=== PATIENT | female | born 1965 | race Caucasian/White ===

== ENCOUNTER 2023-06-15 18:50 | Emergency (ER) | payer BC, OTHER ==
[2023-06-15 19:12] VITALS: TEMP 97.6
[2023-06-15 20:06] LABS: Basophils # (A) 0.1 k/uL (0-0.2); Basophils % (A) 0 %; Eosinophils # (A) 0.2 k/uL (0-0.7); Eosinophils % (A) 1 %; HCT 26.9 % (34.0-46.0); HGB 9.2 gm/dL (11.4-16.0); Lymphocytes # (A) 1.1 k/uL (1.0-4.8); Lymphocytes % (A) 5 %; MCH 31.3 pg (25.0-35.0); MCHC 34.1 g/dL (31.0-37.0); MCV 91.8 fL (80.0-100.0); Mean Platelet Volume 10.4; Monocytes # (A) 1.1 k/uL (0-1.0); Monocytes % (A) 5 %; Neutrophils % (A) 86 %; Platelet Count 272 k/uL (150-450); RBC 2.92 m/uL (3.80-5.40); RDW 15.7 % (11.5-15.5); WBC 22.2 k/uL (3.8-10.6)
--- NOTE | 2023-06-15 20:10 | ED ---
General Adult HPI - General Source: patient, family Mode of arrival: ambulatory Limitations: no limitations <Alfonzo Lieberman - Last Filed: 06/15/23 20:10> <Liza Echavarria - Last Filed: 06/16/23 01:15> - General Chief complaint: Weakness Stated complaint: abnormal labs Time Seen by Provider: 06/15/23 20:09 - History of Present Illness Initial comments: 58-year-old female presenting to the ED with a chief complaint of abnormal labs. Patient reports over the past few weeks has had some problems with some nausea, generalized weakness, chills. Also notes some ongoing hematuria however did not denies dysuria, flank pain. Denies abdominal pain. Denies chronic alcohol use. States that she had labs drawn a few days ago and was instructed by her PCP to present to the ED for further evaluation as she was found to have an elevated white blood cell count and elevated bilirubin. (Alfonzo Lieberman) Bandar 58-year-old female presents the ER today for abnormal outpatient labs, jaundice and generalized weakness. Patient reports that on May 27 she developed acute GI illness with nausea vomiting and diarrhea. She states that she was sick for multiple days on day 7 she saw her primary care provider. Patient states that she had outpatient labs done at that time with no acute findings. Since that time patient reports she has had decreased appetite, intermittent nausea and pain with any oral intake. Because of this patient has not been eating or drinking much. Over the past week family has noted that she is becoming weaker she saw her primary care on Friday and had blood work, on Friday family noted that she appeared jaundiced she had repeat blood work done on or Friday and was called by her primary care today and advised to seek care in the hospital. Patient denies any fevers or chills. Patient states that she only gets pain after eating, no abdominal pain other times. Patient does not drink alcohol, patient reports she is a former smoker does not currently smoke cigarettes. No other GI history. (Liza Echavarria) - Related Data Allergies Allergy/AdvReac Type Severity Reaction Status Date / Time No Known Allergies Allergy Verified 06/15/23 18:59 Review of Systems ROS Other: All systems not noted in ROS Statement are negative. <Alfonzo Lieberman - Last Filed: 06/15/23 20:10> ROS Other: All systems not noted in ROS Statement are negative. <Liza Echavarria - Last Filed: 06/16/23 01:15> ROS Statement: Those systems with pertinent positive or pertinent negative responses have been documented in the HPI. Past Medical History Past Medical History: Diabetes Mellitus, Hyperlipidemia, Hypertension, Osteoarthritis (OA) Additional Past Medical History / Comment(s): neuropathy, herniated lumbar disc Additional Past Surgical History / Comment(s): ervical fusion <Alfonzo Lieberman - Last Filed: 06/15/23 20:10> General Exam Limitations: no limitations <Alfonzo Lieberman - Last Filed: 06/15/23 20:10> <Liza Echavarria - Last Filed: 06/16/23 01:15> - General Exam Comments Initial Comments: Visual Physical Exam Vital signs reviewed General: Well-appearing, nontoxic, no acute distress. Head: Normocephalic, atraumatic Eyes: PERRLA, EOMI ENT: Airway patent Chest: Nonlabored breathing Skin: No visual rash, normal skin tone Neuro: Alert and oriented 3 Musculoskeletal: No gross abnormalities (Alfonzo Lieberman) Physical Exam GENERAL: Ill-appearing dehydrated and jaundice HENT: Normocephalic, Atraumatic. EYES: Scleral icterus PULMONARY: Unlabored respirations. CARDIOVASCULAR: RRR 1+ pitting edema bilateral lower extremities ABDOMEN: Non-distended SKIN: Jaundice : Deferred NEUROLOGIC: Alert and oriented Normal speech MUSCULOSKELETAL: Moving all extremities with no apparent injury PSYCHIATRIC: No SI/HI (Liza Echavarria) Course Vital Signs 06/15/23 06/15/23 06/15/23 18:54 21:56 23:45 Temperature 97.6 F Pulse Rate 79 71 66 Respiratory 16 18 18 Rate Blood Pressure 114/64 118/71 138/66 O2 Sat by Pulse 98 98 100 Oximetry EKG Findings - EKG Comments: EKG Findings:: EKG interpreted by me, EKG obtained due to complaint of generalized weakness EKG obtained at 1911, rate is 77 rhythm is sinus normal intervals, NC 136, QRS 102, QTc [address] elevations or depressions no evidence of ischemia or infarction. <Liza Echavarria - Last Filed: 06/16/23 01:15> Medical Decision Making - Lab Data Result diagrams: 06/15/23 19:31 <Alfonzo Lieberman - Last Filed: 06/15/23 20:10> - Lab Data Result diagrams: 06/15/23 19:31 06/15/23 19:31 <JerichoLiza Kandi - Last Filed: 06/16/23 01:15> - Medical Decision Making Quicknote portion performed. Signed Alfonzo Lieberman PA-C (Alfonzo Lieberman) Was pt. sent in by a medical professional or institution (, PA, LONG TERM CARE ADMINISTRATOR, urgent care, hospital, or snf...) When possible be specific @ -Yes sent by primary care Did you speak to anyone other than the patient for history (EMS, parent, family, police, friend...)? What history was obtained from this source @ -Family at bedside Did you review nursing and triage notes (agree or disagree)? Why? @ -I reviewed and agree with nursing and triage notes Were old charts reviewed (outside hosp., previous admission, EMS record, old EKG, old radiological studies, urgent care reports/EKG's, snf records)? Report findings @ -Previous labs reviewed Differential Diagnosis (chest pain, altered mental status, abdominal pain women, abdominal pain men, vaginal bleeding, weakness, fever, dyspnea, syncope, headache, dizziness, GI bleed, back pain, seizure, CVA, palpatations, mental health)? @ -Differential Abdominal Pain Women: Appendicitis, Cholecystitis, diverticulosis, ischemic bowel, pancreatitis, hepatitis, UTI, gastroenteritis, AAA, incarcerated hernia, bowel obstruction, constipation, inflammatory bowel, hepatitis, peptic ulcer disease, splenic infarction, perforated viscus, vulvitis, ovarian torsion, PID, kidney stone, placenta abruption, this is not meant to be an all-inclusive list EKG interpreted by me (3pts min.). @ -As above X-rays interpreted by me (1pt min.). @ -None done CT interpreted by me (1pt min.). @ -No free air no pancreatic mass U/S interpreted by me (1pt. min.). @ -No gallstones or common bile duct dilatation What testing was considered but not performed or refused? (CT, X-rays, U/S, labs)? Why? @ -None What meds were considered but not given or refused? Why? @ -None Did you discuss the management of the patient with other professionals (pr ofessionals i.e. , PA, LONG TERM CARE ADMINISTRATOR, lab, RT, psych nurse, drug abuse social worker, floor covering printer assistant, teacher, parcel post officer, major case detective)? Give summary @ -No Was smoking cessation discussed for >3mins.? @ -No Was critical care preformed (if so, how long)? @ -No Were there social determinants of health that impacted care today? How? (Homelessness, low income, unemployed, alcoholism, drug addiction, transportation, low edu. Level, literacy, decrease access to med. care, penitentiary, rehab)? @ -No Was there de-escalation of care discussed even if they declined (Discuss DNR or withdrawal of care, Hospice)? DNR status @ -No What co-morbidities impacted this encounter? (DM, HTN, Smoking, COPD, CAD, Cancer, CVA, ARF, Chemo, Hep., AIDS, mental health diagnosis, sleep apnea, morbid obesity)? @ -Diabetes Was patient admitted / discharged? Hospital course, mention meds given and route, prescriptions, significant lab abnormalities, going to OR and other pertinent info. @ -Transfer to outside facility Patient with acute onset painless jaundice after weeks of GI illness. Labs with multiple significant abnormalities including transaminitis, significantly elevated bilirubin, acute kidney injury, leukocytosis. CT scan shows superior mesenteric vein clot. I suspect the patient has mesenteric ischemia with eating resulting in her symptoms. Patient will be started on heparin and transferred to outside facility for evaluation by GI and general surgery. Undiagnosed new problem with uncertain prognosis? @ -Yes Drug Therapy requiring intensive monitoring for toxicity (Heparin, Nitro, Insulin, Cardizem)? @ -Yes, heparin Were any procedures done? @ -No Diagnosis/symptom? @ -Superior mesenteric vein thrombosis Acute, or Chronic, or Acute on Chronic? @ -Acute Uncomplicated (without systemic symptoms) or Complicated (systemic symptoms)? @ -Default Side effects of treatment? @ -No Exacerbation, Progression, or Severe Exacerbation? @ -No Poses a threat to life or bodily function? How? (Chest pain, [place], [place], pneumonia, PE, COPD, DKA, ARF, appy, cholecystitis, CVA, Diverticulitis, Homicidal, Suicidal, threat to staff... and all critical care pts) @ -Yes can resulted in mesenteric ischemia, bowel (Liza Echavarria) - Lab Data Lab Results 06/15/23 06/15/23 06/15/23 Range/Units 19:31 19:31 19:31 WBC 22.2 H (3.8-10.6) k/uL RBC 2.92 L (3.80-5.40) m/uL Hgb 9.2 L (11.4-16.0) gm/dL Hct 26.9 L (34.0-46.0) % MCV 91.8 (80.0-100.0) fL MCH 31.3 (25.0-35.0) pg MCHC 34.1 (31.0-37.0) g/dL RDW 15.7 H (11.5-15.5) % Plt Count 272 (150-450) k/uL MPV 10.4 Neutrophils % 86 % Lymphocytes % 5 % Monocytes % 5 % Eosinophils % 1 % Basophils % 0 % Neutrophils # 19.0 H (1.3-7.7) k/uL Lymphocytes # 1.1 (1.0-4.8) k/uL Monocytes # 1.1 H (0-1.0) k/uL Eosinophils # 0.2 (0-0.7) k/uL Basophils # 0.1 (0-0.2) k/uL PT 11.8 (10.0-12.5) sec INR 1.1 (<1.2) APTT 23.7 (22.0-30.0) sec Sodium 131 L (137-145) mmol/L Potassium 3.9 (3.5-5.1) mmol/L Chloride 102 (98-107) mmol/L Carbon Dioxide 17 L (22-30) mmol/L Anion Gap 12 mmol/L BUN 23 H (7-17) mg/dL Creatinine 1.32 H (0.52-1.04) mg/dL Est GFR (CKD-EPI)AfAm 52 (>60 ml/min/1.73 sqM) Est GFR (CKD-EPI)NonAf 45 (>60 ml/min/1.73 sqM) Glucose 96 (74-99) mg/dL Plasma Lactic Acid Ed (0.7-2.0) mmol/L Calcium 7.9 L (8.4-10.2) mg/dL Phosphorus 3.9 (2.5-4.5) mg/dL Magnesium 1.7 (1.6-2.3) mg/dL Total Bilirubin 7.6 H (0.2-1.3) mg/dL AST 74 H (14-36) U/L ALT 40 H (4-34) U/L Alkaline Phosphatase 203 H (38-126) U/L Ammonia (<30) umol/L Troponin I (0.000-0.034) ng/mL Total Protein 6.3 (6.3-8.2) g/dL Albumin 2.6 L (3.5-5.0) g/dL Amylase (30-110) U/L Lipase (23-300) U/L Urine Color Urine Appearance (Clear) Urine pH (5.0-8.0) Ur Specific [place] (1.001-1.035) Urine Protein (Negative) Urine Glucose (UA) (Negative) Urine Ketones (Negative) Urine Blood (Negative) Urine Nitrite (Negative) Urine Bilirubin (Negative) Urine Urobilinogen (<2.0) mg/dL Ur Leukocyte Esterase (Negative) Urine RBC (0-5) /hpf Urine WBC (0-5) /hpf Ur Squamous Epith Cells (0-4) /hpf Urine Bacteria (None) /hpf Hyaline Casts (0-2) /lpf Granular Casts (0) /lpf Urine Mucus (None) /hpf 06/15/23 06/15/23 06/15/23 Range/Units 19:31 19:31 19:31 WBC (3.8-10.6) k/uL RBC (3.80-5.40) m/uL Hgb (11.4-16.0) gm/dL Hct (34.0-46.0) % MCV (80.0-100.0) fL MCH (25.0-35.0) pg MCHC (31.0-37.0) g/dL RDW (11.5-15.5) % Plt Count (150-450) k/uL MPV Neutrophils % % Lymphocytes % % Monocytes % % Eosinophils % % Basophils % % Neutrophils # (1.3-7.7) k/uL Lymphocytes # (1.0-4.8) k/uL Monocytes # (0-1.0) k/uL Eosinophils # (0-0.7) k/uL Basophils # (0-0.2) k/uL PT (10.0-12.5) sec INR (<1.2) APTT (22.0-30.0) sec Sodium (137-145) mmol/L Potassium (3.5-5.1) mmol/L Chloride (98-107) mmol/L Carbon Dioxide (22-30) mmol/L Anion Gap mmol/L BUN (7-17) mg/dL Creatinine (0.52-1.04) mg/dL Est GFR (CKD-EPI)AfAm (>60 ml/min/1.73 sqM) Est GFR (CKD-EPI)NonAf (>60 ml/min/1.73 sqM) Glucose (74-99) mg/dL Plasma Lactic Acid Ed 1.1 (0.7-2.0) mmol/L Calcium (8.4-10.2) mg/dL Phosphorus (2.5-4.5) mg/dL Magnesium (1.6-2.3) mg/dL Total Bilirubin (0.2-1.3) mg/dL AST (14-36) U/L ALT (4-34) U/L Alkaline Phosphatase (38-126) U/L Ammonia 14 (<30) umol/L Troponin I 0.016 (0.000-0.034) ng/mL Total Protein (6.3-8.2) g/dL Albumin (3.5-5.0) g/dL Amylase 41 (30-110) U/L Lipase 67 (23-300) U/L Urine Color Urine Appearance (Clear) Urine pH (5.0-8.0) Ur Specific [place] (1.001-1.035) Urine Protein (Negative) Urine Glucose (UA) (Negative) Urine Ketones (Negative) Urine Blood (Negative) Urine Nitrite (Negative) Urine Bilirubin (Negative) Urine Urobilinogen (<2.0) mg/dL Ur Leukocyte Esterase (Negative) Urine RBC (0-5) /hpf Urine WBC (0-5) /hpf Ur Squamous Epith Cells (0-4) /hpf Urine Bacteria (None) /hpf Hyaline Casts (0-2) /lpf Granular Casts (0) /lpf Urine Mucus (None) /hpf 06/15/23 Range/Units 21:47 WBC (3.8-10.6) k/uL RBC (3.80-5.40) m/uL Hgb (11.4-16.0) gm/dL Hct (34.0-46.0) % MCV (80.0-100.0) fL MCH (25.0-35.0) pg MCHC (31.0-37.0) g/dL RDW (11.5-15.5) % Plt Count (150-450) k/uL MPV Neutrophils % % Lymphocytes % % Monocytes % % Eosinophils % % Basophils % % Neutrophils # (1.3-7.7) k/uL Lymphocytes # (1.0-4.8) k/uL Monocytes # (0-1.0) k/uL Eosinophils # (0-0.7) k/uL Basophils # (0-0.2) k/uL PT (10.0-12.5) sec INR (<1.2) APTT (22.0-30.0) sec Sodium (137-145) mmol/L Potassium (3.5-5.1) mmol/L Chloride (98-107) mmol/L Carbon Dioxide (22-30) mmol/L Anion Gap mmol/L BUN (7-17) mg/dL Creatinine (0.52-1.04) mg/dL Est GFR (CKD-EPI)AfAm (>60 ml/min/1.73 sqM) Est GFR (CKD-EPI)NonAf (>60 ml/min/1.73 sqM) Glucose (74-99) mg/dL Plasma Lactic Acid Ed (0.7-2.0) mmol/L Calcium (8.4-10.2) mg/dL Phosphorus (2.5-4.5) mg/dL Magnesium (1.6-2.3) mg/dL Total Bilirubin (0.2-1.3) mg/dL AST (14-36) U/L ALT (4-34) U/L Alkaline Phosphatase (38-126) U/L Ammonia (<30) umol/L Troponin I (0.000-0.034) ng/mL Total Protein (6.3-8.2) g/dL Albumin (3.5-5.0) g/dL Amylase (30-110) U/L Lipase (23-300) U/L Urine Color Dark Brown Urine Appearance Cloudy H (Clear) Urine pH 5.5 (5.0-8.0) Ur Specific [place] 1.014 (1.001-1.035) Urine Protein 1+ H (Negative) Urine Glucose (UA) Negative (Negative) Urine Ketones Negative (Negative) Urine Blood Negative (Negative) Urine Nitrite Negative (Negative) Urine Bilirubin 2+ H (Negative) Urine Urobilinogen 12.0 (<2.0) mg/dL Ur Leukocyte Esterase Negative (Negative) Urine RBC 1 (0-5) /hpf Urine WBC <1 (0-5) /hpf Ur Squamous Epith Cells 3 (0-4) /hpf Urine Bacteria Occasional H (None) /hpf Hyaline Casts 1 (0-2) /lpf Granular Casts 1 (0) /lpf Urine Mucus Rare H (None) /hpf Disposition <Alfonzo Lieberman - Last Filed: 06/15/23 20:10> - Out of Hospital Transfer - Req. Specs Out of Hospital Transfer - Requested Specifics: Other Emergency Center ([facility]) <Liza Echavarria - Last Filed: 06/16/23 01:15> Clinical Impression: Superior mesenteric vein thrombosis, Jaundice, DORON (acute kidney injury) Disposition: OTHER INSTITUTION NOT DEFINED Condition: Serious Referrals: Maryana Bansal, NPC [Primary Care Provider] - 1-2 days
[2023-06-15 20:14] LABS: Lactic Acid, Venous 1.1 mmol/L (0.7-2.0)
[2023-06-15 20:16] LABS: ALT 40 U/L (4-34); AST 74 U/L (14-36); African American GFR (CKD) 52 (>60 ml/min/1.73 sqM); Albumin 2.6 g/dL (3.5-5.0); Alkaline Phosphatase 203 U/L (38-126); Anion Gap 12 mmol/L; Blood Urea Nitrogen 23 mg/dL (7-17); Calcium 7.9 mg/dL (8.4-10.2); Carbon Dioxide 17 mmol/L (22-30); Chloride 102 mmol/L (98-107); Glucose 96 mg/dL (74-99); Magnesium 1.7 mg/dL (1.6-2.3); Non-African American GFR(CKD) 45 (>60 ml/min/1.73 sqM); Phosphorus 3.9 mg/dL (2.5-4.5); Potassium 3.9 mmol/L (3.5-5.1); Sodium 131 mmol/L (137-145); Total Bilirubin 7.6 mg/dL (0.2-1.3); Total Protein 6.3 g/dL (6.3-8.2)
[2023-06-15 20:41] LABS: INR 1.1 (<1.2); Partial Thromboplastin Time 23.7 sec (22.0-30.0); Prothrombin Time 11.8 sec (10.0-12.5)
--- NOTE | 2023-06-15 20:58 | XR ---
EXAMINATION TYPE: XR chest 2V DATE OF EXAM: 06/15/2023 7:55 PM CLINICAL INDICATION:Female, 58 years old with history of Weakness; [facility] COMPARISON: Two-view chest 04/16/2011 TECHNIQUE: XR chest 2V. Frontal and lateral views of the chest.. FINDINGS: Lines/Tubes/Devices: No indwelling lines are seen. Heart/mediastinum: Heart size upper normal. Mildly tortuous aorta. Mediastinum otherwise appears norm al. Pulmonary vascularity: Possible minimal congestion. Lungs/Pleura: There is no evidence of pleural effusion, focal consolidation, or pneumothorax. Mildly coarsened interstitial markings bilaterally. Musculoskeletal: No acute osseous abnormality demonstrated in the limits of the exam. Degenerative changes of the spine. Other findings: None. IMPRESSION: 1. Heart size upper normal. 2. Lung findings may suggest mild congestion versus chronic interstitial changes. Follow-up as clini bartolo warranted.
[2023-06-15 21:39] LABS: Amylase 41 U/L (30-110); Lipase 67 U/L (23-300)
[2023-06-15 22:06] VITALS: RESP 18
[2023-06-15 22:24] LABS: Appearance,Urine Cloudy (Clear); Bacteria,Urine Occasional /hpf; Bilirubin,Urine 2+ (Negative); Blood,Urine Negative (Negative); Color,Urine Dark Brown; Glucose,Urine (UA) Negative (Negative); Granular Casts,Urine 1 /lpf (0); Hyaline Casts,Urine 1 /lpf (0-2); Ketones,Urine Negative (Negative); Leukocyte Esterase,Urine Negative (Negative); Mucus,Urine Rare /hpf; Nitrite,Urine Negative (Negative); PH, Urine 5.5 (5.0-8.0); Protein,Urine 1+ (Negative); RBC,Urine 1 /hpf (0-5); Specific Gravity,Urine 1.014 (1.001-1.035); Squamous Epithelial Cell,Urine 3 /hpf (0-4); WBC,Urine <1 /hpf (0-5)
--- NOTE | 2023-06-15 22:24 | CT ---
EXAMINATION TYPE: CT abdomen pelvis w con DATE OF EXAM: 06/15/2023 HISTORY: sent from [facility] c/o weakness.sent for elevated wbc and elevated bili. pt jaundice eys and skin. no abdomen pain no chest pain no sob. c/o increase swelling to feet. CT DLP: 959.4mGycm Automated Exposure Control for Dose Reduction was Utilized. CONTRAST: CT scan of the abdomen and pelvis is performed with IV Contrast, patient injected with 80 mL of Isovu e 300. COMPARISON: Ultrasound gallbladder earlier today FINDINGS: LUNG BASES: No significant abnormality is appreciated. LIVER/GB: Liver is normal in size. Liver is heterogeneously hypodense suggesting diffuse fatty infilt rative hepatocellular disease. Patent main portal vein. Contracted gallbladder. No biliary dilatation . No ascites. Complete thrombosis of the SMV is identified coronal image 47. PANCREAS: No significant abnormality is seen. SPLEEN: A few punctate callus calcifications in the spleen are presumed product of old granulomatous disease. ADRENALS: No significant abnormality is seen. KIDNEYS: No significant abnormality is seen. BOWEL: No abnormal small or large bowel dilatation. Suboptimal evaluation of bowel without enteric c ontrast. Sigmoid colonic diverticula. No CT evidence for acute diverticulitis. Poor visualization of normal appendix. Mild fat stranding and ill-defined fluid in the right lower quadrant is identified. UTERUS/ADNEXA: Anteverted uterus. LYMPH NODES: No greater than 1cm abdominal or pelvic lymph nodes are appreciated. OSSEOUS STRUCTURES: Slight scoliotic curvature. Multilevel disc space narrowing most prominent at the anterior L1-L2 and L3-L4 levels. Multilevel vacuum disc phenomenon. Sclerosis and disc space narrowi ng in the thoracic spine is noted. OTHER: Moderate calcified plaque of the infrarenal abdominal aorta extends into iliac branch vessels with more severe focal plaque noted. Heterogeneous soft tissue along the bilateral anterior abdominal wall could reflect scar or pannus IMPRESSION: 1. Heterogeneous hypodense appearance to liver suggesting fatty infiltrative hepatocellular disease. No biliary dilatation. There is however significant thrombus in the SMV. Further workup and follow-up advised. 2. Poor visualization of normal appendix with mild ill-defined fluid and fat stranding in the right l ower quadrant. If there is concern for acute appendicitis, repeat CT with oral or rectal contrast lauren uld be considered to better evaluate.
[2023-06-15] MEDS ORDERED: HEPARIN SODIUM 1,000 UN/ML (10ML VL) IV PRN (23:13)
[2023-06-15] MEDS: HEPARIN SOD,PORK IN 0.45% NACL 25,000 UNIT in 0.45% NACL 1 250ML.BAG IV SCH (23:42)
[2023-06-15] MEDS: HEPARIN SODIUM 1,000 UN/ML (10ML VL) IV ONE (23:42)
--- NOTE | 2023-06-15 23:49 | US ---
EXAMINATION TYPE: US gallbladder DATE OF EXAM: 06/15/2023 COMPARISON: Correlation with same-day CT abdomen CLINICAL INDICATION: Female, 58 years old with history of elevated bili, nausea, generalized weakness , jaund; TECHNIQUE: Multiple sonographic images of the right upper quadrant are obtained. FINDINGS: EXAM MEASUREMENTS: Liver Length: 17.5 cm Gallbladder Wall: 0.2 cm CBD: 0.4 cm Right Kidney: 9.3 x 4.1 x 4.1 cm Pancreas: visualized portions wnl, limited by overlying midline bowel gas Liver: Measures in upper limits of normal. Parenchyma appears perhaps slightly coarsened and echogen ic. Gallbladder: appears elongated, otherwise within normal limits. No shadowing gallstones. Evidence for sonographic Glass's sign: no CBD: wnl Right Kidney: wnl IMPRESSION: 1. Prominent liver with slightly coarsened parenchymal echogenicity, which can be seen with diffuse hepatocellular disease, commonly steatosis. 2. No biliary ductal dilatation. 3. Elongated appearance of the gallbladder without significant distention, wall thickening, or shado wing gallstones.
[2023-06-15 23:57] VITALS: BP 138/66; PULSE 66
== END 2023-06-16 02:39 | disposition other institution (70) ==
LOC: EC 18:50
DX: K55.059 Acute (reversible) ischemia of intestine, part and extent unspecified (principal); R17 Unspecified jaundice; N17.9 Acute kidney failure, unspecified
CPT/HCPCS: 36415; 93005; 80053; 82140; 82150; 83605; 83690; 83735; 84100; 84484; 85025; 85610; 85730; 81001; 71046; 76705; 74177; 99285; 96365; J1644 ×2; Q9967

== ENCOUNTER 2023-07-01 06:42 | Day surgery (SDC) | payer OTHER ==
[2023-06-30 10:55] VITALS: BMI 31.8
[2023-07-01 07:43] VITALS: BP 153/69; PULSE 75; RESP 16; TEMP 98.3
== END 2023-07-01 08:11 | disposition home health service (06) ==
LOC: CATHCVL 06:42
PROVIDERS: ATTEND Internal Medicine Endocrinology, Diabetes & Metabolism
DX: K65.1 Peritoneal abscess (principal); E78.5 Hyperlipidemia, unspecified; I10 Essential (primary) hypertension; M19.90 Unspecified osteoarthritis, unspecified site; E10.42 Type 1 diabetes mellitus with diabetic polyneuropathy; G47.33 Obstructive sleep apnea (adult) (pediatric); N17.9 Acute kidney failure, unspecified; Z79.84 Long term (current) use of oral hypoglycemic drugs; Z79.01 Long term (current) use of anticoagulants; Z79.899 Other long term (current) drug therapy
CPT/HCPCS: 36410; 76937; C1751